=== PATIENT | female | born 1995 | race Caucasian/White ===

== ENCOUNTER 2020-02-19 15:02 | Emergency (ER) | payer OTHER ==
[~2020-02-19] VITALS: Ht 172.7 cm; Wt 70.3 kg
[2020-02-19 15:07] VITALS: BP 127/86
== END 2020-02-19 16:01 | disposition home or self-care (01) ==
LOC: ER 15:02
DX: R05 Cough (principal); Z20.828 Contact with and (suspected) exposure to other viral communicable diseases; R09.81 Nasal congestion; J02.9 Acute pharyngitis, unspecified; M79.10 Myalgia, unspecified site; R53.83 Other fatigue; R06.02 Shortness of breath; M79.601 Pain in right arm; M79.602 Pain in left arm

== ENCOUNTER → 2020-08-19 | Outpatient (CLI) | payer BC, OTHER | LOC: LAB 13:40 | PROVIDERS: ATTEND Family Medicine | DX: Z20.828 Contact with and (suspected) exposure to other viral communicable diseases (principal) ==